=== PATIENT | male | born 1950 | race Caucasian/White ===

== ENCOUNTER → 2017-03-30 09:01 | Outpatient (CLI) | payer OTHER ==
[2010-01-21 09:11] VITALS: BMI 29.0
== END | disposition home or self-care (01) ==
LOC: D.ECHO 09:01
DX: I25.10 Atherosclerotic heart disease of native coronary artery without angina pectoris (principal); I10 Essential (primary) hypertension; Z95.5 Presence of coronary angioplasty implant and graft